=== PATIENT | female | born 2005 | race Two or more races ===

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

== ENCOUNTER 2023-01-21 13:36 | Outpatient (CLI) | payer BC, MEDICAID ==
[~2023-01-21] VITALS: Ht 165.1 cm; Wt 68.1 kg
[~2023-01-21 13:36] MED LIST changes: +ALBUTEROL SULFATE 2.5MG/0.5ML INH NEB SOLN INH PRN; +CURRENT HEIGHT AND WEIGHT NEEDED ON PATIENT XX SCH; +EPINEPHrine INJ 1 MG/ML 1ML AMP IM PRN; +diphenhydrAMINE 50MG/ML VIAL IV PRN; +methylPREDNISolone 125MG 2ML VIAL IV PRN
[2023-01-21 13:45] VITALS: BP 120/68; O2SAT 98
[2023-01-21] MEDS ORDERED: FERRIC CARBOXYMALTOSE INJ 750 MG in NS 250 ML (>50kg) IV ONE ×3 (14:00)
[2023-01-21] MEDS ORDERED: NS 1,000 ML IV SCH (14:00)
[2023-01-21 16:15] VITALS: BP 118/74; O2SAT 98
== END 2023-01-21 16:15 | disposition home or self-care (01) ==
LOC: M INFU 13:36
PROVIDERS: ATTEND Family Medicine
DX: R50.9 Fever, unspecified (principal)
CPT/HCPCS: 96365; 96366; J1439

== ENCOUNTER → 2023-03-13 | Outpatient (CLI) | payer BC, MEDICAID ==
[~2023-03-13] MED LIST changes: -ALBUTEROL SULFATE 2.5MG/0.5ML INH NEB SOLN INH PRN; -CURRENT HEIGHT AND WEIGHT NEEDED ON PATIENT XX SCH; -EPINEPHrine INJ 1 MG/ML 1ML AMP IM PRN; -diphenhydrAMINE 50MG/ML VIAL IV PRN; -methylPREDNISolone 125MG 2ML VIAL IV PRN
== END ==
LOC: M CARPUL 08:33
PROVIDERS: ATTEND Family Medicine
DX: R16.0 Hepatomegaly, not elsewhere classified (principal); I07.9 Rheumatic tricuspid valve disease, unspecified

== ENCOUNTER → 2023-04-05 | Outpatient (REF) | payer BC, MEDICAID | LOC: M SFHCPLAZ 12:57 | PROVIDERS: ATTEND Family Medicine | DX: L73.2 Hidradenitis suppurativa (principal) ==

== ENCOUNTER → 2023-05-10 | Outpatient (CLI) | payer BC ==
[2023-05-10 11:09] LABS: BASO % 0.1 % (0.0-1.0); EOS # 0.1 10^3/uL (0.0-0.5); EOS % 2.1 % (0.0-3.0); HEMATOCRIT 40.1 % (36.0-47.0); HEMOGLOBIN 12.7 g/dl (12.0-15.5); LYMPH # 3.3 10^3/uL (1.5-5.0); LYMPH % 49.3 % (24.0-44.0); MEAN CORPUSCULAR HEMOGLOBIN 26.4 pg (27.0-33.0); MEAN CORPUSCULAR HGB CONC 31.7 g/dl (32.0-36.5); MEAN CORPUSCULAR VOLUME 83.4 fl (80.0-96.0); MONO # 0.6 10^3/uL (0.0-0.8); MONO % 8.1 % (2.0-8.0); NEUTROPHILS # 2.7 10^3/uL (1.5-8.5); NEUTROPHILS % 40.3 % (36.0-66.0); PLATELET COUNT, AUTOMATED 346 10^3/uL (150-450); RED BLOOD COUNT 4.81 10^6/uL (4.00-5.40); WHITE BLOOD COUNT 6.8 10^3/uL (4.0-10.0)
[2023-05-10 11:24] LABS: ERYTHROCYTE SEDIMENTATION RATE 80 mm/hr (0-20)
[2023-05-10 11:37] LABS: ALBUMIN 3.7 G/DL (3.2-5.2); ALKALINE PHOSPHATASE 75 U/L (46-116); ALT/SGPT 20 U/L (7.0-40); AST/SGOT 14 U/L (<34); BILIRUBIN,TOTAL 0.7 MG/DL (0.3-1.2); BLOOD UREA NITROGEN 19 MG/DL (9-23); CALCIUM LEVEL 9.2 MG/DL (8.5-10.1); CARBON DIOXIDE LEVEL 22 MMOL/L (20-31); CHLORIDE LEVEL 109 MMOL/L (98-107); CREATININE FOR GFR 0.77 MG/DL (0.55-1.30); GLUCOSE, FASTING 82 MG/DL (60-100); PTH INTACT 36.7 PG/ML (18.5-88.0); SODIUM LEVEL 140 MMOL/L (136-145); THYROID STIMULATING HORMONE 4.296 uIU/ML (0.48-4.17); TOTAL 25(OH) VITAMIN D 34.4 NG/ML (20.0-100.0)
[2023-05-10 11:38] LABS: FREE T4 1.17 NG/DL (0.83-1.43)
[2023-05-10 11:39] LABS: VITAMIN B12 LEVEL 271 PG/ML (211-911)
[2023-05-10 11:41] LABS: THYROID PEROXIDASE ANTIBODY 38 U/ML (<60.0)
== END ==
LOC: M PLALAB 08:26
PROVIDERS: ATTEND Family Medicine
DX: K50.90 Crohn's disease, unspecified, without complications (principal); D50.9 Iron deficiency anemia, unspecified; M85.80 Other specified disorders of bone density and structure, unspecified site; E55.9 Vitamin D deficiency, unspecified

== ENCOUNTER → 2023-05-13 | Outpatient (REF) | payer BC | LOC: M SFHCPLAZ 08:49 | PROVIDERS: ATTEND Family Medicine | DX: E03.9 Hypothyroidism, unspecified (principal) ==

== ENCOUNTER → 2023-05-27 | Outpatient (REF) | payer BC | LOC: M SFHCPLAZ 09:08 | PROVIDERS: ATTEND Family Medicine | DX: E03.9 Hypothyroidism, unspecified (principal); E53.8 Deficiency of other specified B group vitamins; K76.0 Fatty (change of) liver, not elsewhere classified; L73.2 Hidradenitis suppurativa ==

== ENCOUNTER → 2023-07-01 | Outpatient (CLI) | payer BC | LOC: M WHC 09:59 | PROVIDERS: ATTEND Family Medicine | DX: M85.88 Other specified disorders of bone density and structure, other site (principal) ==

== ENCOUNTER 2023-07-02 15:11 | Outpatient (CLI) | payer BC ==
[~2023-07-02] VITALS: Ht 170.2 cm; Wt 75.0 kg
[~2023-07-02 15:11] MED LIST changes: +ALBUTEROL SULFATE 2.5MG/0.5ML INH NEB SOLN INH PRN; +EPINEPHrine INJ 1 MG/ML 1ML AMP IM PRN; +diphenhydrAMINE 50MG/ML VIAL IV PRN; +methylPREDNISolone 125MG 2ML VIAL IV PRN
[2023-07-02 15:30] VITALS: BP 132/64; O2SAT 98
[2023-07-02] MEDS ORDERED: NS 1,000 ML IV SCH (15:30)
[2023-07-02] MEDS: FERRIC CARBOXYMALTOSE INJ 750 MG in NS 250 ML (>50kg) IV ONE (15:30)
[2023-07-02 16:35] VITALS: BP 132/64; O2SAT 97
== END 2023-07-02 16:38 | disposition home or self-care (01) ==
LOC: M INFU 15:11
PROVIDERS: ATTEND Family Medicine
DX: D50.9 Iron deficiency anemia, unspecified (principal)
CPT/HCPCS: 96365; J1439

== ENCOUNTER → 2023-07-04 | Outpatient (REF) | payer BC ==
[~2023-07-04] MED LIST changes: -ALBUTEROL SULFATE 2.5MG/0.5ML INH NEB SOLN INH PRN; -EPINEPHrine INJ 1 MG/ML 1ML AMP IM PRN; -diphenhydrAMINE 50MG/ML VIAL IV PRN; -methylPREDNISolone 125MG 2ML VIAL IV PRN
== END ==
LOC: M SFHCPLAZ 16:03
PROVIDERS: ATTEND Family Medicine
DX: E03.9 Hypothyroidism, unspecified (principal); E53.8 Deficiency of other specified B group vitamins; K76.0 Fatty (change of) liver, not elsewhere classified; L73.2 Hidradenitis suppurativa

== ENCOUNTER → 2023-07-05 | Outpatient (REF) | payer BC | LOC: M SFHCPLAZ 09:21 | PROVIDERS: ATTEND Family Medicine | DX: D50.9 Iron deficiency anemia, unspecified (principal); E55.9 Vitamin D deficiency, unspecified; E53.8 Deficiency of other specified B group vitamins; K50.90 Crohn's disease, unspecified, without complications; E03.9 Hypothyroidism, unspecified; L73.2 Hidradenitis suppurativa; J03.90 Acute tonsillitis, unspecified; Z53.9 Procedure and treatment not carried out, unspecified reason ==

== ENCOUNTER → 2023-11-25 | Outpatient (CLI) | payer BC ==
[2023-11-25 15:54] LABS: BASO % 0.1 % (0.0-1.0); EOS # 0.1 10^3/uL (0.0-0.5); EOS % 1.5 % (0.0-3.0); HEMATOCRIT 39.2 % (36.0-47.0); HEMOGLOBIN 12.5 g/dl (12.0-15.5); LYMPH # 3.1 10^3/uL (1.5-5.0); LYMPH % 42.2 % (24.0-44.0); MEAN CORPUSCULAR HEMOGLOBIN 27.8 pg (27.0-33.0); MEAN CORPUSCULAR HGB CONC 31.9 g/dl (32.0-36.5); MEAN CORPUSCULAR VOLUME 87.1 fl (80.0-96.0); MONO # 0.4 10^3/uL (0.0-0.8); MONO % 5.9 % (2.0-8.0); NEUTROPHILS # 3.7 10^3/uL (1.5-8.5); NEUTROPHILS % 49.9 % (36.0-66.0); PLATELET COUNT, AUTOMATED 353 10^3/uL (150-450); WHITE BLOOD COUNT 7.4 10^3/uL (4.0-10.0)
[2023-11-25 16:06] LABS: ERYTHROCYTE SEDIMENTATION RATE 56 mm/hr (0-20)
[2023-11-25 16:17] LABS: ALBUMIN 4.1 G/DL (3.2-5.2); ALKALINE PHOSPHATASE 76 U/L (46-116); ALT/SGPT 21 U/L (7.0-40); AST/SGOT 13 U/L (<34); BILIRUBIN,TOTAL 0.6 MG/DL (0.3-1.2); BLOOD UREA NITROGEN 13 MG/DL (9-23); CALCIUM LEVEL 9.6 MG/DL (8.5-10.1); CARBON DIOXIDE LEVEL 23 MMOL/L (20-31); CHLORIDE LEVEL 108 MMOL/L (98-107); CHOLESTEROL LEVEL 172 MG/DL (<200); CHOLESTEROL RISK RATIO 2.62 (<5); GLUCOSE, FASTING 79 MG/DL (60-100); HDL CHOLESTEROL 65.5 MG/DL (>40); LDL CHOLESTEROL 94.7 MG/DL (<100); NON-HDL-C 106.5 MG/DL; POTASSIUM SERUM 4.2 MMOL/L (3.5-5.1); PTH INTACT 34.9 PG/ML (18.5-88.0); SODIUM LEVEL 137 MMOL/L (136-145); TOTAL PROTEIN 8.4 G/DL (5.7-8.2); TRIGLYCERIDES LEVEL 59 MG/DL (<150)
[2023-11-25 16:20] LABS: FREE T4 1.12 NG/DL (0.83-1.43)
[2023-11-25 16:21] LABS: FERRITIN 145.4 NG/ML (7.3-270.7)
[2023-11-25 16:22] LABS: ESTRADIOL 44.5 PG/ML; FOLLICLE STIMULATING HORMONE 7.4 mIU/ML; LUTEINIZING HORMONE 7.8 mIU/ML; TOTAL 25(OH) VITAMIN D 33.1 NG/ML (20.0-100.0)
[2023-11-25 16:23] LABS: VITAMIN B12 LEVEL 834 PG/ML (211-911)
[2023-11-25 16:40] LABS: HEPATITIS B SURFACE ANTIGEN NEGATIVE (NEGATIVE)
[2023-11-25 17:00] LABS: HEPATITIS C VIRUS ABY INDEX < 0.02 INDEX (<0.8)
== END ==
LOC: M PLALAB 12:53
PROVIDERS: ATTEND Family Medicine
DX: E53.8 Deficiency of other specified B group vitamins (principal); D50.9 Iron deficiency anemia, unspecified; K50.90 Crohn's disease, unspecified, without complications; E55.9 Vitamin D deficiency, unspecified; E03.9 Hypothyroidism, unspecified; L73.2 Hidradenitis suppurativa; M85.80 Other specified disorders of bone density and structure, unspecified site

== ENCOUNTER → 2024-04-06 | Outpatient (CLI) | payer BC | LOC: M WHC 09:24 | PROVIDERS: ATTEND Family Medicine | DX: K76.0 Fatty (change of) liver, not elsewhere classified (principal) ==

== ENCOUNTER → 2024-06-30 | Outpatient (REF) | payer BC, MEDICAID | LOC: M SFHCPLAZ 10:19 | PROVIDERS: ATTEND Family Medicine | DX: J06.9 Acute upper respiratory infection, unspecified (principal) ==

== ENCOUNTER → 2024-09-10 | Outpatient (CLI) | payer BC, MEDICAID ==
[2024-09-10 14:46] LABS: BASO % 0.2 % (0.0-1.0); EOS # 0.1 10^3/uL (0.0-0.5); EOS % 1.2 % (0.0-3.0); HEMATOCRIT 42.5 % (36.0-47.0); HEMOGLOBIN 13.3 g/dl (12.0-15.5); LYMPH # 3.3 10^3/uL (1.5-5.0); LYMPH % 27.9 % (24.0-44.0); MEAN CORPUSCULAR HEMOGLOBIN 26.8 pg (27.0-33.0); MEAN CORPUSCULAR HGB CONC 31.3 g/dl (32.0-36.5); MEAN CORPUSCULAR VOLUME 85.7 fl (80.0-96.0); MONO % 8.7 % (2.0-8.0); NEUTROPHILS # 7.2 10^3/uL (1.5-8.5); NEUTROPHILS % 61.4 % (36.0-66.0); PLATELET COUNT, AUTOMATED 396 10^3/uL (150-450); RED BLOOD COUNT 4.96 10^6/uL (4.00-5.40); WHITE BLOOD COUNT 11.8 10^3/uL (4.0-10.0)
[2024-09-10 14:52] LABS: ERYTHROCYTE SEDIMENTATION RATE 127 mm/hr (0-20)
[2024-09-10 15:15] LABS: FERRITIN 108.2 NG/ML (7.3-270.7)
[2024-09-10 15:16] LABS: TOTAL 25(OH) VITAMIN D 25.3 NG/ML (20.0-100.0)
[2024-09-10 15:18] LABS: ALBUMIN 3.6 G/DL (3.2-5.2); ALKALINE PHOSPHATASE 79 U/L (35-104); ALT/SGPT 22 U/L (7.0-40); AST/SGOT 17 U/L (<34); BILIRUBIN,TOTAL 0.6 MG/DL (0.3-1.2); BLOOD UREA NITROGEN 16 MG/DL (9-23); CALCIUM LEVEL 9.6 MG/DL (8.5-10.1); CARBON DIOXIDE LEVEL 25 MMOL/L (20-31); CHLORIDE LEVEL 106 MMOL/L (98-107); CREATININE FOR GFR 0.74 MG/DL (0.55-1.30); GLOMERULAR FILTRATION RATE > 90.0 (>60); GLUCOSE, FASTING 81 MG/DL (60-100); POTASSIUM SERUM 4.4 MMOL/L (3.5-5.1); SODIUM LEVEL 139 MMOL/L (136-145); TOTAL PROTEIN 8.4 G/DL (5.7-8.2)
[2024-09-10 15:19] LABS: VITAMIN B12 LEVEL 1400 PG/ML (211-911)
[2024-09-10 15:48] LABS: PTH INTACT 25.4 PG/ML (18.5-88.0)
== END ==
LOC: M PLALAB 10:19
PROVIDERS: ATTEND Family Medicine
DX: E55.9 Vitamin D deficiency, unspecified (principal); E53.8 Deficiency of other specified B group vitamins; D50.9 Iron deficiency anemia, unspecified; K50.90 Crohn's disease, unspecified, without complications

== ENCOUNTER → 2024-11-05 | Outpatient (REF) | payer BC, MEDICAID | LOC: M SFHCPLAZ 16:52 | PROVIDERS: ATTEND Family Medicine | DX: K61.0 Anal abscess (principal) ==

== ENCOUNTER 2024-11-26 07:28 | Outpatient (CLI) | payer BC, MEDICAID ==
[~2024-11-26] VITALS: Ht 167.6 cm; Wt 71.2 kg
[2024-11-26] MEDS ORDERED: NS (Normal Saline) 0.9% 1,000 ML IV SCH (07:30)
[2024-11-26 07:35] VITALS: BP 115/78; O2SAT 100
[2024-11-26] MEDS: diphenhydrAMINE 25MG IV PRIOR TO INFUSION IV ONE (07:48)
[2024-11-26] MEDS: ACETAMINOPHEN 650MG PO PRIOR TO INFUSION PO ONE (07:48)
[2024-11-26] MEDS: inFLIXimab INJECTION 300 MG in NS 220 ML IV ONE (08:25)
[2024-11-26 08:45] VITALS: BP 100/65; O2SAT 100
[2024-11-26 09:00] VITALS: BP 111/69; O2SAT 100
[2024-11-26 09:15] VITALS: BP 104/63; O2SAT 100
[2024-11-26 09:45] VITALS: BP 110/66; O2SAT 100
[2024-11-26 10:45] VITALS: BP 116/70; O2SAT 98
== END 2024-11-26 10:55 | disposition home or self-care (01) ==
LOC: M INFU 07:28
PROVIDERS: ATTEND Family Medicine
DX: K50.90 Crohn's disease, unspecified, without complications (principal); M45.9 Ankylosing spondylitis of unspecified sites in spine
CPT/HCPCS: 96375; 96413; 96415; J1200; J1745

== ENCOUNTER → 2024-12-10 | Outpatient (CLI) | payer BC, MEDICAID ==
[~2024-12-10] VITALS: Ht 167.6 cm; Wt 69.0 kg
[~2024-12-10] MED LIST changes: +NS (Normal Saline) 0.9% 1,000 ML IV SCH
[2024-12-10 13:55] VITALS: BP 156/84; O2SAT 98
[2024-12-10] MEDS: ACETAMINOPHEN 650MG PO PRIOR TO INFUSION PO ONE (14:39)
[2024-12-10] MEDS: diphenhydrAMINE 25MG IV PRIOR TO INFUSION IV ONE (14:40)
[2024-12-10] MEDS: inFLIXimab INJECTION 300 MG in NS 220 ML IV ONE (14:57)
[2024-12-10 16:53] VITALS: BP 132/85; O2SAT 100
== END ==
LOC: M INFU 16:55
PROVIDERS: ATTEND Family Medicine
DX: K50.90 Crohn's disease, unspecified, without complications (principal); M45.9 Ankylosing spondylitis of unspecified sites in spine
CPT/HCPCS: 96375; 96413; 96415; J1200; J1745